=== PATIENT | female | born 1985 | race Caucasian/White ===

== ENCOUNTER 2021-12-25 09:34 | Emergency (ER) | payer OTHER ==
[2021-12-25 09:43] VITALS: BP 132/75; PULSE 86; TEMP 98.8; BMI 35.4
== END 2021-12-25 10:31 | disposition home or self-care (01) ==
LOC: JER 09:34
DX: G89.4 Chronic pain syndrome (principal)
CPT/HCPCS: 99281-25

== ENCOUNTER 2022-05-11 16:31 | Emergency (ER) | payer OTHER ==
[2022-05-11 16:42] VITALS: PULSE 101; BMI 34.9
[2022-05-11] MEDS ORDERED: ACETAMINOPHEN 1000 MG/100 ML BAG IVPB ONE (18:41)
[2022-05-11] MEDS ORDERED: ACETAMINOPHEN INJECTION 100 ML IVPB ONE (18:42)
[2022-05-11 18:58] LABS: BASO % 0.3 % (0-2.0); EOS % 3.3 % (0-4.5); HEMATOCRIT 39.7 % (32.4-45.2); HEMOGLOBIN 13.3 GM/dL (10.7-15.3); MCH 27.2 pg (25.7-33.7); MCHC 33.4 g/dl (32.0-36.0); MEAN CELL VOLUME 81.4 fl (80-96); MEAN PLT VOLUME 6.7 fl (7.5-11.1); MONO % 8.1 % (3.8-10.2); NEUT % 70.3 % (42.8-82.8); PLATELET COUNT 334 10^3/uL (134-434); RBC 4.88 M/mm3 (3.60-5.2); RDW 13.4 % (11.6-15.6); WHITE BLOOD COUNT 10.4 K/mm3 (4.0-10.0)
[2022-05-11 19:58] LABS: CHLORIDE 106 mmol/L (98-107); SODIUM 140 mmol/L (136-145)
[2022-05-11 20:01] LABS: CALCIUM 8.9 mg/dL (8.5-10.1)
[2022-05-11 20:02] LABS: ALBUMIN 3.5 g/dl (3.4-5.0); ANION GAP 6 MMOL/L (8-16); BLOOD UREA NITROGEN 13.7 mg/dL (7-18); CO2 28 mmol/L (21-32); GLUCOSE,RANDOM 84 mg/dL (74-106)
[2022-05-11 20:04] LABS: SGPT/ALT 39 U/L (13-61)
[2022-05-11 20:05] LABS: CREATININE 0.7 mg/dL (0.55-1.3); SGOT/AST 28 U/L (15-37)
[2022-05-11 20:06] LABS: BILIRUBIN,TOTAL 0.4 mg/dL (0.2-1); TOT PROT 7.3 g/dl (6.4-8.2)
[2022-05-11 20:07] LABS: ALK PHOS 110 U/L (45-117)
[2022-05-11 23:52] VITALS: BP 134/34; RESP 18; TEMP 98.3
== END 2022-05-11 23:56 | disposition home or self-care (01) ==
LOC: JER 16:31
PROC: 3E033GC Introduction of Other Therapeutic Substance into Peripheral Vein, Percutaneous Approach (ICD-10-PCS; principal; 2022-05-11)
DX: K62.5 Hemorrhage of anus and rectum (principal); R10.32 Left lower quadrant pain; K62.89 Other specified diseases of anus and rectum
CPT/HCPCS: 36415; 74177-TC; 80053; 82272; 84702; 84703; 85025; 99285-25; Q9967

== ENCOUNTER 2022-07-06 05:42 | Day surgery (SDC) | payer OTHER ==
[2022-07-06] MEDS ORDERED: LACTATED RINGERS SOLUTION 1,000 ML IV SCH (07:30)
[2022-07-06 12:20] VITALS: BMI 33.8
[2022-07-06] MEDS ORDERED: LIDOCAINE HCL 2% JELLY (30 ML/TUBE) TP ONE (12:53)
[2022-07-06 13:03] VITALS: TEMP 97
[2022-07-06] MEDS ORDERED: ACETAMINOPHEN INJECTION 100 ML IVPB ONE (13:55)
[2022-07-06 14:16] VITALS: BP 114/72; PULSE 66; RESP 14
== END 2022-07-06 13:42 | disposition home or self-care (01) ==
LOC: JASU-ENDO 05:42
PROVIDERS: ATTEND Internal Medicine Gastroenterology
PROC: 06LY8CC Occlusion of Hemorrhoidal Plexus with Extraluminal Device, Via Natural or Artificial Opening Endoscopic (ICD-10-PCS; principal; 2022-07-06 12:15)
DX: K62.5 Hemorrhage of anus and rectum (principal)
CPT/HCPCS: 82962

== ENCOUNTER 2023-10-18 04:42 | Day surgery (SDC) | payer OTHER ==
[2023-10-16 14:35] VITALS: BMI 40.7
[2023-10-18 09:07] VITALS: BP 118/76; PULSE 85; RESP 19; TEMP 97.6
== END 2023-10-18 09:07 | disposition home or self-care (01) ==
LOC: JASU-ENDO 04:42
PROVIDERS: ATTEND Internal Medicine Gastroenterology
PROC: 0DB78ZX Excision of Stomach, Pylorus, Via Natural or Artificial Opening Endoscopic, Diagnostic (ICD-10-PCS; 2023-10-18)
PROC: 0DB68ZX Excision of Stomach, Via Natural or Artificial Opening Endoscopic, Diagnostic (ICD-10-PCS; principal; 2023-10-18 08:30)
DX: K29.50 Unspecified chronic gastritis without bleeding (principal); B96.81 Helicobacter pylori [H. pylori] as the cause of diseases classified elsewhere
CPT/HCPCS: 81025; 82962; 88305-TC; 88342-TC